=== PATIENT | female | born 1975 | race Caucasian/White ===

== ENCOUNTER 2018-01-28 18:14 | Emergency (ER) | payer OTHER ==
--- NOTE | 2018-01-28 19:17 | EDPHYS ---
Physician Documentation [facility] Name: Krystle Rodgers Age: 42 yrs Sex: Female : 1975 Arrival Date: 01/28/2018 Time: 18:17 Bed 16 Private MD: Fred Doe ED Physician Guru Castaneda HPI: 01/28 19:16 This 42 yrs old Female presents to ER via Ambulatory with complaints of Ear pm1 Pain. 19:16 The patient presents with pain. The complaints affect the left ear. Onset: The pm1 symptoms/episode began/occurred 1 week(s) ago. Modifying factors: The symptoms are alleviated by covering ear with heat pack. Associated signs and symptoms: Pertinent negatives: cough, fever, shortness of breath, sore throat. Severity of symptoms: in the emergency department the symptoms are worse. The patient has not experienced similar symptoms in the past. Patient is a pain management patient for chronic low back pain and has been taking hydrocodone at home for the pain without any relief. Patient took 1/2 of 1 hydrocodone tablet 2 hours prior to arrival. Patient has been swimming almost every day this summer. 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 aj1 Historical: - Allergies: 18:41 Aspirin; aj1 18:41 Latex, Natural Rubber; aj1 18:41 Iodine; aj1 18:41 Ibuprofen; aj1 - Home Meds: 18:42 insulin [Active]; hctz [Active]; zyrtec [Active]; codeine [Active]; muscle relaxers aj1 [Active]; Toujeo SoloStar subcutaneous subcutaneous [Active]; 18:52 Latuda oral oral [Active]; pantoprazole oral oral [Active]; metformin [Active]; aj1 Hydroxyzine Oral [Active]; cholesterol medication [Active]; potassium [Active]; Magnesium Oxide Oral [Active]; Bupropion Oral [Active]; gabapentin oral oral [Active]; - PMHx: 18:41 Anxiety; Depression; Diabetes - IDDM; Glaucoma; Hypertension; aj1 - PSHx: 18:41 Hernia repair; left ankle; aj1 - Immunization history:: Flu vaccine is not up to date. - Social history:: Smoking status: Patient uses tobacco products, smokes one-half pack cigarettes per day. - Ebola Screening: : Patient denies travel to an Ebola-affected area in the 21 days before illness onset. ROS: 19:16 Constitutional: Negative for fever, chills, and weight loss, Eyes: Negative for injury, pm1 pain, redness, and discharge. 19:16 Neck: Negative for injury, pain, and swelling, Cardiovascular: Negative for chest pain, palpitations, and edema, Respiratory: Negative for shortness of breath, cough, wheezing, and pleuritic chest pain, Abdomen/GI: Negative for abdominal pain, nausea, vomiting, diarrhea, and constipation, Back: Negative for injury and pain, MS/Extremity: Negative for injury and deformity, Skin: Negative for injury, rash, and discoloration, Neuro: Negative for headache, weakness, numbness, tingling, and seizure. 19:16 ENT: Positive for ear pain, of the left ear, Negative for drainage from ear(s), sinus congestion, sinus pain, sore throat, dental pain, difficulty swallowing, difficulty handling secretions, hoarseness. Exam: 19:16 Constitutional: This is a well developed, well nourished patient who is awake, alert, pm1 and in no acute distress. Head/Face: Normocephalic, atraumatic. Eyes: Pupils equal round and reactive to light, extra-ocular motions intact. Lids and lashes normal. Conjunctiva and sclera are non-icteric and not injected. Cornea within normal limits. Periorbital areas with no swelling, redness, or edema. 19:16 Neck: Trachea midline, no thyromegaly or masses palpated, and no cervical lymphadenopathy. Supple, full range of motion without nuchal rigidity, or vertebral point tenderness. No Meningismus. Chest/axilla: Normal chest wall appearance and motion. Nontender with no deformity. No lesions are appreciated. Cardiovascular: Regular rate and rhythm with a normal S1 and S2. No gallops, murmurs, or rubs. Normal PMI, no JVD. No pulse deficits. Respiratory: Lungs have equal breath sounds bilaterally, clear to auscultation and percussion. No rales, rhonchi or wheezes noted. No increased work of breathing, no retractions or nasal flaring. Abdomen/GI: Soft, non-tender, with normal bowel sounds. No distension or tympany. No guarding or rebound. No evidence of tenderness throughout. Back: No spinal tenderness. No costovertebral tenderness. Full range of motion. Skin: Warm, dry with normal turgor. Normal color with no rashes, no lesions, and no evidence of cellulitis. MS/ Extremity: Pulses equal, no cyanosis. Neurovascular intact. Full, normal range of motion. 19:16 ENT: External ear(s): are unremarkable, Ear canal(s): swelling, that is moderate, of the left canal, TM's: TM not completely visible on left ear due to left canal swelling, Examination of the other ear shows no obvious abnormality, Nose: is normal, no bleeding, no drainage, no edema, Mouth: is normal, no drooling, no injury, (-) tongue elevation (-) trismus Posterior pharynx: is normal, airway is patent, normal sized tonsils, normal uvula size. 19:16 Neuro: Orientation: is normal, Motor: moves all fours. Vital Signs: 18:42 BP 134 / 84; Pulse 112; Resp 20; Temp 98.3(O); Pulse Ox 99% on R/A; Weight 145.15 kg aj1 (R); Height 5 ft. 3 in. (160.02 cm) (R); Pain 10/10; 18:42 Body Mass Index 56.68 (145.15 kg, 160.02 cm) 1 MDM: 18:54 Patient medically screened. pm1 19:16 Data reviewed: vital signs. Data interpreted: Pulse oximetry: on room air is 99 %. pm1 Interpretation: normal. Counseling: I had a detailed discussion with the patient and/or guardian regarding: the historical points, exam findings, and any diagnostic results supporting the discharge/admit diagnosis, the need for outpatient follow up, to return to the emergency department if symptoms worsen or persist or if there are any questions or concerns that arise at home. Administered Medications: 19:29 Drug: Hydrocodone-Acetaminophen (7.5 mg-325 mg) 1 tabs Route: PO; kr2 19:32 Follow up: Response: Medication administered at discharge. kr2 Disposition: 01/29 07:11 Co-signature as Attending Physician, Guru Castaneda MD. rn Disposition: 01/28/18 19:17 Discharged to Home. Impression: Unspecified otitis externa, left ear. - Condition is Stable. - Discharge Instructions: Ear Drops, Adult, Otitis Externa. - Prescriptions for Cortisporin 3.5- 10,000-1 mg/mL-unit/mL-% Otic solution - instill 4 drop by OTIC route every 6 hours for 10 days; 10 milliliter. Amoxicillin 500 mg Oral Capsule - take 1 capsule by ORAL route every 8 hours for 10 days; 30 tablet. - Medication Reconciliation Form, Thank You Letter, Antibiotic Education, Prescription Opioid Use form. - Follow up: Emergency Department; When: As needed; Reason: Worsening of condition. Follow up: Private Physician; When: 2 - 3 days; Reason: Recheck today's complaints, Continuance of care, Re-evaluation by your physician. - Problem is new. - Symptoms have improved. Signatures: Marguerite Ferguson RN RN aj1 Guru Castaneda MD MD rn Marinas, Patrick, INSTRUCTOR WARPER INSTRUCTOR WARPER pm1 Risa Dimas RN RN kr2 Corrections: (The following items were deleted from the chart) 01/28 19:33 19:17 01/28/2018 19:17 Discharged to Home. Impression: Unspecified otitis externa, left kr2 ear. Condition is Stable. Forms are Medication Reconciliation Form, Thank You Letter, Antibiotic Education, Prescription Opioid Use. Follow up: Emergency Department; When: As needed; Reason: Worsening of condition. Follow up: Private Physician; When: 2 - 3 days; Reason: Recheck today's complaints, Continuance of care, Re-evaluation by your physician. Problem is new. Symptoms have improved. pm1
--- NOTE | 2018-01-28 19:17 | ER ---
Nurse's Notes [facility] Name: Krystle Rodgers Age: 42 yrs Sex: Female : 1975 Arrival Date: 01/28/2018 Time: 18:17 Bed 16 Private MD: Fred Doe Diagnosis: Unspecified otitis externa, left ear Presentation: 01/28 18:38 Presenting complaint: Patient states: "I started getting pain in my ear a week ago and aj1 now its getting so sharp that I cant sleep at night" Reports left ear pain that radiates to the left jaw. States that she has been taking Codeine and Tramadol for her pain but it isn't helping. Reports fever at home of 99.9. Transition of care: patient was not received from another setting of care. Onset of symptoms was January 21, 2018. Risk Assessment: Do you want to hurt yourself or someone else? Patient reports no desire to harm self or others. Initial Sepsis Screen: Does the patient meet any 2 criteria? HR > 90 bpm. Does the patient have a suspected source of infection? No. Patient's initial sepsis screen is negative. Care prior to arrival: None. 18:38 Method Of Arrival: Ambulatory aj1 18:38 Acuity: INNA 4 aj1 Triage Assessment: 18:42 General: Appears in no apparent distress. comfortable, Behavior is calm, cooperative, aj1 appropriate for age. Pain: Complains of pain in left ear Pain radiates to left jaw Pain currently is 10 out of 10 on a pain scale. EENT: Reports ear pain. Neuro: Level of Consciousness is awake, alert, obeys commands. Cardiovascular: Patient's skin is warm and dry. Respiratory: Airway is patent Respiratory effort is even, unlabored, Respiratory pattern is regular, symmetrical. 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 aj1 Historical: - Allergies: 18:41 Aspirin; aj1 18:41 Latex, Natural Rubber; aj1 18:41 Iodine; aj1 18:41 Ibuprofen; aj1 - Home Meds: 18:42 insulin [Active]; hctz [Active]; zyrtec [Active]; codeine [Active]; muscle relaxers aj1 [Active]; Toujeo SoloStar subcutaneous subcutaneous [Active]; 18:52 Latuda oral oral [Active]; pantoprazole oral oral [Active]; metformin [Active]; aj1 Hydroxyzine Oral [Active]; cholesterol medication [Active]; potassium [Active]; Magnesium Oxide Oral [Active]; Bupropion Oral [Active]; gabapentin oral oral [Active]; - PMHx: 18:41 Anxiety; Depression; Diabetes - IDDM; Glaucoma; Hypertension; aj1 - PSHx: 18:41 Hernia repair; left ankle; aj1 - Immunization history:: Flu vaccine is not up to date. - Social history:: Smoking status: Patient uses tobacco products, smokes one-half pack cigarettes per day. - Ebola Screening: : Patient denies travel to an Ebola-affected area in the 21 days before illness onset. Screenin:29 Abuse screen: Denies threats or abuse. Denies injuries from another. Nutritional kr2 screening: No deficits noted. Tuberculosis screening: No symptoms or risk factors identified. Fall Risk None identified. Assessment: 19:15 General: Appears in no apparent distress. uncomfortable, well groomed, Behavior is kr2 calm, cooperative, appropriate for age. Pain: Complains of pain in left ear Pain radiates to left jaw Pain currently is 10 out of 10 on a pain scale. Quality of pain is described as aching, Is continuous, Alleviated by nothing. Neuro: Level of Consciousness is awake, alert, obeys commands, Oriented to person, place, time, situation. Cardiovascular: Capillary refill < 3 seconds in bilateral fingers Patient's skin is warm and dry. Respiratory: Airway is patent Respiratory effort is even, unlabored, Respiratory pattern is regular, symmetrical. GI: Patient currently denies nausea, vomiting. EENT: Nares are clear bilaterally Oral mucosa is moist. EENT: Reports pain in left ear. Derm: Skin is intact, is healthy with good turgor, Skin is pink, warm \\T\\ dry. Musculoskeletal: Circulation, motion, and sensation intact. Vital Signs: 18:42 BP 134 / 84; Pulse 112; Resp 20; Temp 98.3(O); Pulse Ox 99% on R/A; Weight 145.15 kg aj1 (R); Height 5 ft. 3 in. (160.02 cm) (R); Pain 10/10; 18:42 Body Mass Index 56.68 (145.15 kg, 160.02 cm) [facility] ED Course: 18:17 Patient arrived in ED. sb2 18:17 Fred Doe DO is Private Physician. sb2 18:40 Triage completed. aj1 18:42 Arm band placed on Patient placed in an exam room. aj1 18:54 Cordell Bentley NP is PHCP. pm1 18:54 Guru Castaneda MD is Attending Physician. pm1 19:23 Risa Dimas, RN is Primary Nurse. kr2 19:30 Patient has correct armband on for positive identification. Bed in low position. Call kr2 light in reach. Side rails up X 1. Pulse ox on. NIBP on. 19:32 No provider procedures requiring assistance completed. Patient did not have IV access kr2 during this emergency room visit. Administered Medications: 19:29 Drug: Hydrocodone-Acetaminophen (7.5 mg-325 mg) 1 tabs Route: PO; kr2 19:32 Follow up: Response: Medication administered at discharge. kr2 Outcome: 19:17 Discharge ordered by MD. pm1 19:32 Discharged to home ambulatory, with friend. kr2 19:32 Condition: good 19:32 Discharge instructions given to patient, Instructed on discharge instructions, follow up and referral plans. medication usage, Demonstrated understanding of instructions, follow-up care, medications, Prescriptions given X 2. 19:33 Patient left the ED. kr2 Signatures: Marguerite Ferguson RN RN aj1 Cordell Bentley, [facility] [employer] pm1 Risa Dimas, OLYA RN kr2 Leah James sb2
[2018-01-28] MEDS ORDERED: HYDROCODONE/APAP 7.5/325 MG TAB ONE (19:31)
[2018-01-28 19:38] VITALS: BP 134/84; TEMP 98.3; O2SAT 99
== END 2018-01-28 19:33 | disposition home or self-care (01) ==
LOC: ER 18:14
DX: H60.92 Unspecified otitis externa, left ear (principal); F17.210 Nicotine dependence, cigarettes, uncomplicated; Z88.6 Allergy status to analgesic agent; Z91.040 Latex allergy status; Z91.048 Other nonmedicinal substance allergy status; I10 Essential (primary) hypertension; E11.39 Type 2 diabetes mellitus with other diabetic ophthalmic complication; H40.9 Unspecified glaucoma; H42 Glaucoma in diseases classified elsewhere; Z79.4 Long term (current) use of insulin
CPT/HCPCS: 99283

== ENCOUNTER 2018-01-29 00:59 | Emergency (ER) | payer OTHER ==
[2018-01-29] MEDS ORDERED: levoFLOXacin 500 MG TAB ONE (01:38)
--- NOTE | 2018-01-29 01:53 | EDPHYS ---
Physician Documentation [facility] Name: Krystle Rodgers Age: 42 yrs Sex: Female : 1975 Arrival Date: 01/29/2018 Time: 01:00 Bed 20 Private MD: Fred Doe ED Physician Rusty Gonzalez HPI: 01/29 01:54 This 42 yrs old Female presents to ER via Ambulatory with complaints of Ear gs Pain. 01:54 The patient presents with pain, swelling, tenderness. The complaints affect the left gs ear. Onset: The symptoms/episode began/occurred 2 day(s) ago. Modifying factors: the symptoms are aggravated by pulling on ears. Associated signs and symptoms: Pertinent negatives: fever. Severity of symptoms: At their worst the symptoms were severe in the emergency department the symptoms are unchanged. The patient has not experienced similar symptoms in the past. The patient has been recently seen at the [facility] Emergency Department, yesterday. 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 - Irregular menses bp Historical: - Allergies: 01:10 Aspirin; bp 01:10 Ibuprofen; bp 01:10 Iodine; bp 01:10 Latex, Natural Rubber; bp - Home Meds: 01:10 Bupropion Oral [Active]; Latuda Oral [Active]; muscle relaxers [Active]; pantoprazole bp Oral [Active]; POTASSIUM [Active]; Toujeo SoloStar subcutaneous [Active]; Zyrtec [Active]; Magnesium Oxide Oral [Active]; cholesterol medication [Active]; codeine [Active]; gabapentin Oral [Active]; hctz [Active]; Hydroxyzine Oral [Active]; insulin [Active]; metformin [Active]; - PMHx: 01:10 Anxiety; Depression; Diabetes - IDDM; Glaucoma; Hypertension; bp - Immunization history:: Adult Immunizations up to date. - Social history:: Smoking status: unknown. - Ebola Screening: : Patient negative for fever greater than or equal to 101.5 degrees Fahrenheit, and additional compatible Ebola Virus Disease symptoms Patient denies exposure to infectious person Patient denies travel to an Ebola-affected area in the 21 days before illness onset No symptoms or risks identified at this time. ROS: 01:54 All other systems are negative. gs Exam: 01:54 Head/Face: Normocephalic, atraumatic. Eyes: Pupils equal round and reactive to light, gs extra-ocular motions intact. Lids and lashes normal. Conjunctiva and sclera are non-icteric and not injected. Cornea within normal limits. Periorbital areas with no swelling, redness, or edema. Neck: Trachea midline, no thyromegaly or masses palpated, and no cervical lymphadenopathy. Supple, full range of motion without nuchal rigidity, or vertebral point tenderness. No Meningismus. Chest/axilla: Normal chest wall appearance and motion. Nontender with no deformity. No lesions are appreciated. Cardiovascular: Regular rate and rhythm with a normal S1 and S2. No gallops, murmurs, or rubs. Normal PMI, no JVD. No pulse deficits. Respiratory: Lungs have equal breath sounds bilaterally, clear to auscultation and percussion. No rales, rhonchi or wheezes noted. No increased work of breathing, no retractions or nasal flaring. Abdomen/GI: Soft, non-tender, with normal bowel sounds. No distension or tympany. No guarding or rebound. No evidence of tenderness throughout. Back: No spinal tenderness. No costovertebral tenderness. Full range of motion. 01:54 Constitutional: The patient appears alert, awake. 01:54 ENT: External ear(s): pain with movement, that is moderate, of the left ear canal, Ear canal(s): swelling, that is moderate, of the left canal. Vital Signs: 01:10 BP 147 / 102; Pulse 109; Resp 20; Temp 98.4; Pulse Ox 99% ; Weight 136.08 kg; Height 5 bp ft. 3 in. (160.02 cm); 01:10 Body Mass Index 53.14 (136.08 kg, 160.02 cm) bp Procedures: 01:54 Performed placement of earwick left ear canal no conplications. gs MDM: 01:15 Patient medically screened. 01:54 Differential diagnosis: otitis externa, acute otalgia. Data reviewed: vital signs, nurses notes. Response to treatment: the patient's symptoms have mildly improved after treatment, and as a result, I will discharge patient. Administered Medications: 01:35 Not Given (not in stock): Ocuflox Drops 0.3 % 1 drops Ophthalmic once; to md for use 01:47 Drug: LevaQUIN 500 mg Route: PO; ao 02:19 Follow up: Response: No adverse reaction ao 02:19 Not Given (Unable to get medication): CIPRODEX 4 drops Otic in left ear once ao Disposition: 01/29/18 01:52 Discharged to Home. Impression: Acute eczematoid otitis externa, left ear, Otalgia, left ear. - Condition is Stable. - Discharge Instructions: Ear Drops, Adult, Otitis Externa. - Prescriptions for Levaquin 500 mg Oral Tablet - take 1 tablet by ORAL route once daily for 6 days; 6 tablet. Ciprodex 0.3- 0.1 % Otic Drops, Suspension - instill 4 drop by OTIC route every 12 hours for 7 days , for ears ONLY; 1 Container. - Medication Reconciliation Form, Thank You Letter, Antibiotic Education, Prescription Opioid Use form. - Follow up: Kalyn Lepe MD; When: 2 - 3 days; Reason: Re-evaluation by your physician, removal of wick. Signatures: Amos Walker RN RN Rusty Gray MD MD Mart Marcano RN RN bp Corrections: (The following items were deleted from the chart) 01:54 01:52 01/29/2018 01:52 Discharged to Home. Impression: Acute eczematoid otitis externa, gs left ear. Condition is Stable. Forms are Medication Reconciliation Form, Thank You Letter, Antibiotic Education, Prescription Opioid Use. Follow up: Kalyn Lepe; When: 2 - 3 days; Reason: Re-evaluation by your physician, removal of wick. 02:20 01:54 01/29/2018 01:52 Discharged to Home. Impression: Acute eczematoid otitis externa, ao left ear; Otalgia, left ear. Condition is Stable. Discharge Instructions: Ear Drops, Adult. Prescriptions for Levaquin 500 mg Oral Tablet - take 1 tablet by ORAL route once daily for 6 days; 6 tablet, Ciprodex 0.3-0.1 % Otic Drops, Suspension - instill 4 drop by OTIC route every 12 hours for 7 days , for ears ONLY; 1 Container. and Forms are Medication Reconciliation Form, Thank You Letter, Antibiotic Education, Prescription Opioid Use. Follow up: Kalyn Lepe; When: 2 - 3 days; Reason: Re-evaluation by your physician, removal of wick. gs
--- NOTE | 2018-01-29 01:53 | ER ---
Nurse's Notes [facility] Name: Krystle Rodgers Age: 42 yrs Sex: Female : 1975 Arrival Date: 01/29/2018 Time: 01:00 Bed 20 Private MD: Fred Doe Diagnosis: Acute eczematoid otitis externa, left ear;Otalgia, left ear Presentation: 01/29 01:07 Presenting complaint: Patient states: I WAS HERE THREE HOURS AGO AND THE MEDICINE Y'ALL bp GAVE ME AIN'T WORKING. Transition of care: patient was not received from another setting of care. Onset of symptoms is unknown. Risk Assessment: Do you want to hurt yourself or someone else? Patient reports no desire to harm self or others. Initial Sepsis Screen: Does the patient meet any 2 criteria? No. Patient's initial sepsis screen is negative. Does the patient have a suspected source of infection? No. Patient's initial sepsis screen is negative. Care prior to arrival: None. 01:07 Method Of Arrival: Ambulatory bp 01:07 Acuity: INNA 5 bp Triage Assessment: 01:10 General: Appears in no apparent distress. comfortable, obese, Behavior is calm, bp cooperative, appropriate for age. Pain: Complains of pain in left ear. EENT: Reports pain in left ear. 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 bp Historical: - Allergies: 01:10 Aspirin; bp 01:10 Ibuprofen; bp 01:10 Iodine; bp 01:10 Latex, Natural Rubber; bp - Home Meds: 01:10 Bupropion Oral [Active]; Latuda Oral [Active]; muscle relaxers [Active]; pantoprazole bp Oral [Active]; POTASSIUM [Active]; Toujeo SoloStar subcutaneous [Active]; Zyrtec [Active]; Magnesium Oxide Oral [Active]; cholesterol medication [Active]; codeine [Active]; gabapentin Oral [Active]; hctz [Active]; Hydroxyzine Oral [Active]; insulin [Active]; metformin [Active]; - PMHx: 01:10 Anxiety; Depression; Diabetes - IDDM; Glaucoma; Hypertension; bp - Immunization history:: Adult Immunizations up to date. - Social history:: Smoking status: unknown. - Ebola Screening: : Patient negative for fever greater than or equal to 101.5 degrees Fahrenheit, and additional compatible Ebola Virus Disease symptoms Patient denies exposure to infectious person Patient denies travel to an Ebola-affected area in the 21 days before illness onset No symptoms or risks identified at this time. Screenin:11 Abuse screen: Denies threats or abuse. Denies injuries from another. Nutritional bp screening: No deficits noted. Tuberculosis screening: No symptoms or risk factors identified. Fall Risk None identified. Assessment: 01:11 General: SEE TRIAGE NOTE. SEEN \R\3 HOURS AGO, COMPLAINS PAIN MEDICINE NOT WORKING FOR bp LEFT EAR PAIN. Vital Signs: 01:10 BP 147 / 102; Pulse 109; Resp 20; Temp 98.4; Pulse Ox 99% ; Weight 136.08 kg; Height 5 bp ft. 3 in. (160.02 cm); 01:10 Body Mass Index 53.14 (136.08 kg, 160.02 cm) bp ED Course: 01:00 Patient arrived in ED. es 01:00 Fred Doe DO is Private Physician. es 01:08 Triage completed. bp 01:09 Rusty Gonzalez MD is Attending Physician. gs 01:11 Arm band placed on. bp 01:11 Patient has correct armband on for positive identification. Bed in low position. Call bp light in reach. Side rails up X2. 01:12 Amos Walker, OLYA is Primary Nurse. ao 01:51 Kalyn Lepe MD is Referral Physician. gs 02:19 No provider procedures requiring assistance completed. Patient did not have IV access ao during this emergency room visit. Administered Medications: 01:35 Not Given (not in stock): Ocuflox Drops 0.3 % 1 drops Ophthalmic once; to md for use gs 01:47 Drug: LevaQUIN 500 mg Route: PO; ao 02:19 Follow up: Response: No adverse reaction ao 02:19 Not Given (Unable to get medication): CIPRODEX 4 drops Otic in left ear once ao Outcome: 01:52 Discharge ordered by MD. gs 02:19 Discharged to home ambulatory. ao 02:19 Condition: stable 02:19 Discharge instructions given to patient, Instructed on discharge instructions, follow up and referral plans. Demonstrated understanding of instructions, follow-up care, medications, Prescriptions given X 2. 02:20 Patient left the ED. ao Signatures: Larissa Romeo Alex RN RN ao Rusty Gonzalez MD MD gs Peltier, Brian, RN RN bp Corrections: (The following items were deleted from the chart) 02:18 02:18 CIPRODEX 4 drops Otic in left ear ao joanie
[2018-01-29 02:31] VITALS: BP 147/102; TEMP 98.4; O2SAT 99
== END 2018-01-29 02:20 | disposition home or self-care (01) ==
LOC: ER 00:59
DX: H60.542 Acute eczematoid otitis externa, left ear (principal); I10 Essential (primary) hypertension; E11.9 Type 2 diabetes mellitus without complications; F41.9 Anxiety disorder, unspecified; F32.9 Major depressive disorder, single episode, unspecified; Z79.4 Long term (current) use of insulin; Z88.6 Allergy status to analgesic agent; Z91.040 Latex allergy status; Z91.048 Other nonmedicinal substance allergy status
CPT/HCPCS: 99283

== ENCOUNTER 2019-01-30 12:37 | Emergency (ER) | payer OTHER ==
--- OUTSIDE RECORDS SUMMARY | 2019-01-30 13:04 | XMS REPORT ---
:1975 Author Organization [facility] Address [address] [place] [address] Dr. Arizmendi [address] [place] [id number] Care Team Providers Name Role Phone Unavailable Unavailable Unavailable Problems This patient has no known problems. Allergies, Adverse Reactions, Alerts This patient has no known allergies or adverse reactions. Medications This patient has no known medications.
--- OUTSIDE RECORDS SUMMARY | 2019-01-30 13:04 | XMS REPORT | Summary of Care ---
:1975 Author Organization [facility] Address [address] [place] [address] Care Team Providers Name Role Phone Fred Doe Primary Care Provider Nery Nicole MD Faculty Unavailable Reason for Visit Reason Comments Notification Encounter Details Date Type Department Care Team Description 01/17/2019 Telephone [facility] Endocrinology- Reena Young MD Notification [address] Professional Office [address] [phone] [place] [address] [address] [place] [address] Allergies Active Allergy Reactions Severity Noted Date Comments Aspirin Swelling 08/01/2015 Banana Swelling 01/29/2012 Ciprofloxacin Swelling 01/29/2012 Codeine Itching, Swelling 08/01/2015 Ibuprofen Swelling 11/21/2015 Iodine Swelling 01/29/2012 Latex Swelling 08/01/2015 [place] Swelling 01/29/2012 documented as of this encounter (statuses as of 01/17/2019) Medications Medication Sig Dispensed Refills Start End Date Status Date pantoprazole (PROTONIX) Take 40 mg 0 Active 40 mg EC tablet by mouth daily. paroxetine (PAXIL) 40 mg Take 40 mg 0 Active tablet by mouth daily. HYDROCHLOROTHIAZIDE ORAL Take by 0 Active mouth. hydrOXYzine (VISTARIL) Take 25 mg 0 Active 25 mg capsule by mouth 3 (three) times daily as needed for Itching. LATUDA 80 mg tablet 0 Active 7 magnesium oxide 400 mg Take 1 180 tablet 1 Active tablet tablet by 7 mouth 2 (two) times daily. cyclobenzaprine 10 mg Take 10 mg 0 Active tablet by mouth 3 (three) times daily. gabapentin 100 mg Take 100 mg 0 Active capsule by mouth 3 (three) times daily. buPROPion XL 300 mg 24 Take 300 mg 0 Active hr tablet by mouth daily. fluticasone 50 Use in each 0 Active mcg/actuation nasal nostril spray daily. Hydrocodone-Acetaminophe Take by 0 Active n 5-300 mg tablet mouth. Cyanocobalamin-Cobamamid Place under 0 Active e (B12) 5,000-100 mcg the tongue. Lozg Black Cohosh 540 mg Cap Take by 0 Active mouth. Cinnamon Bark (CINNAMON) Take by 0 Active 500 mg Cap mouth. Mvsnw-3-VWH-EPA-Fish Oil Take by 0 Active (FISH OIL) 1,000 mg (120 mouth. mg-180 mg) Cap metFORMIN 500 mg 24 hr Take 2 360 tablet 3 Active tabletIndications: Type tablets by 8 2 diabetes mellitus with mouth 2 proteinuric diabetic (two) times nephropathy daily with meals. lisinopril 40 mg Take 1 90 tablet 1 Active tabletIndications: tablet by 9 Essential hypertension, mouth daily. Stage 1 chronic kidney disease insulin aspart U-100 inject 8 3 Syringe 1 Active (NOVOLOG FLEXPEN U-100 Units under 9 INSULIN) 100 unit/mL the skin 3 injectionIndications: (three) Uncontrolled type 2 times daily diabetes mellitus with before proteinuric diabetic meals. nephropathy atorvastatin 40 mg Take 1 90 tablet 1 Active tabletIndications: tablet by 9 Dyslipidemia mouth at bedtime. Insulin [place], Use as 450 Each 1 Active Disposable, (IQRA PEN directed. 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 diabetes mellitus with proteinuric diabetic nephropathy ondansetron 4 mg tablet Take 4 mg by 0 Active mouth every 8 (eight) hours as needed. SHANELL CHRISTINE U-300 INJECT 35 63 mL 0 Active INSULIN 300 unit/mL (1.5 UNITS UNDER 9 mL) InPnIndications: THE SKIN 2 Uncontrolled type 2 (TWO) TIMES diabetes mellitus with DAILY. proteinuric diabetic nephropathy TRULICITY 1.5 mg/0.5 mL INJECT 1.5 6 mL 1 Active PnIjIndications: Type 2 MG UNDER THE 9 diabetes mellitus SKIN WEEKLY. without complication, with long-term current use of insulin dapagliflozin (FARXIGA) Take 1 30 tablet 4 Active 5 mg tabletIndications: tablet by 9 Uncontrolled type 2 mouth every diabetes mellitus with morning. proteinuric diabetic nephropathy blood sugar diagnostic Use as 300 Strip 1 Active (RELION ULTIMA) directed, 9 stripIndications: TID, Uncontrolled type 2 DX:E11.9 diabetes mellitus with proteinuric diabetic nephropathy blood sugar diagnostic Use as 300 Strip 1 01/18/20 Discontinued (RELION ULTIMA) directed, 9 19 stripIndications: TID, Uncontrolled type 2 DX:E11.9 diabetes mellitus with proteinuric diabetic nephropathy dapagliflozin (FARXIGA) Take 1 30 tablet 4 01/18/20 Discontinued 5 mg tabletIndications: tablet by 9 19 Uncontrolled type 2 mouth every diabetes mellitus with morning. proteinuric diabetic nephropathy documented as of this encounter (statuses as of 01/17/2019) Active Problems Problem Noted Date Morbid obesity with body mass index of 50 or higher 08/28/2018 Knee internal derangement, left 08/14/2018 Overview: Added automatically from request for surgery [id number] Essential hypertension 03/21/2017 Type 2 diabetes mellitus with complication, with long-term current use of 07/2016 insulin Dyslipidemia 03/21/2017 Hypomagnesemia 03/21/2017 Chronic pain of right ankle 08/06/2016 documented as of this encounter (statuses as of 01/17/2019) Social History Tobacco Use Types Packs/Day Years Used Date Passive Smoke Exposure - Never Smoker Cigarettes Smokeless Tobacco: Never Used Comments: Socially Alcohol Use Drinks/Week oz/Week Comments No 0 Standard drinks or equivalent 0.0 Sex Assigned at Date Recorded Not on file Job Start Date Occupation Industry Not on file Not on file Not on file Travel History Travel Start Travel End No recent travel history available. documented as of this encounter Last Filed Vital Signs Not on filedocumented in this encounter Plan of Treatment Date Type Specialty Care Team Description 05/29/2019 Office Visit Endocrinology Diabetes & Reena Young MD Metabolism [address] [place] [address] [phone] 07/03/2019 Ambulatory Care Coordinator Visit Endocrinology Diabetes & Aleena Mendez RD Metabolism [address] [place] [address] [phone] Health Maintenance Due Date Last Done Comments PNEUMOCOCCAL 0-64 YEARS COMBINED 1982 SERIES (1 of - PPSV23) EYE EXAM 1986 DTaP,Tdap,and Td Vaccines (1 - 1995 Tdap) PAP SMEAR 1997 MAMMOGRAM 2016 INFLUENZA VACCINE 02/18/2019 HgA1C 02/21/2019 08/21/2018, 05/08/2018, 02/01/2018, Additional history exists CREATININE (SERUM) 08/22/2019 08/21/2018, 08/21/2018, 03/21/2017, Additional history exists FOOT EXAM 08/22/2019 08/21/2018, 08/21/2018, 05/08/2018, Additional history exists LDL-C 08/22/2019 08/21/2018, 03/21/2017 URINE MICROALBUMIN 08/22/2019 08/21/2018, 03/21/2017 documented as of this encounter Results Not on filedocumented in this encounter Visit Diagnoses Diagnosis 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 & [address] t [id number] [place] [address] [facility] MEDICAID OF xxxxxxxxx 2015-Presdimitry [phone] [address] [place] t 0 [id number] [place] [address] documented as of this encounter
--- OUTSIDE RECORDS SUMMARY | 2019-01-30 13:04 | XMS REPORT | Summary of Care ---
:1975 Author Organization [facility] Address [address] [place] [address] Care Team Providers Name Role Phone Fred Doe Ravi Primary Care Provider Nery Nicole MD Faculty Unavailable Reason for Visit Reason Comments Refill Request Encounter Details Date Type Department Care Team Description 01/13/2019 Refill [facility] Endocrinology- Nery Nicole MD Refill Request [place] [facility] Building [address] [place] [address] [address] [place] [address] Allergies Active Allergy Reactions Severity Noted Date Comments Aspirin Swelling 08/01/2015 Banana Swelling 01/29/2012 Ciprofloxacin Swelling 01/29/2012 Codeine Itching, Swelling 08/01/2015 Ibuprofen Swelling 11/21/2015 Iodine Swelling 01/29/2012 Latex Swelling 08/01/2015 [place] Swelling 01/29/2012 documented as of this encounter (statuses as of 01/15/2019) Medications Medication Sig Dispensed Refills Start Date End Date Status pantoprazole (PROTONIX) 40 Take 40 mg by 0 Active mg EC tablet mouth daily. paroxetine (PAXIL) 40 mg Take 40 mg by 0 Active tablet mouth daily. HYDROCHLOROTHIAZIDE ORAL Take by 0 Active mouth. hydrOXYzine (VISTARIL) 25 Take 25 mg by 0 Active mg capsule mouth 3 (three) times daily as needed for Itching. LATUDA 80 mg tablet 0 07/17/2016 Active magnesium oxide 400 mg Take 1 tablet 180 tablet 1 03/22/2017 Active tablet by mouth 2 (two) times daily. cyclobenzaprine 10 mg Take 10 mg by 0 Active tablet mouth 3 (three) times daily. gabapentin 100 mg capsule Take 100 mg 0 Active by mouth 3 (three) times daily. buPROPion XL 300 mg 24 hr Take 300 mg 0 Active tablet by mouth daily. fluticasone 50 Use in each 0 Active mcg/actuation nasal spray nostril daily. Hydrocodone-Acetaminophen Take by 0 Active 5-300 mg tablet mouth. Cyanocobalamin-Cobamamide Place under 0 Active (B12) 5,000-100 mcg Lozg the tongue. Black Cohosh 540 mg Cap Take by 0 Active mouth. Cinnamon Bark (CINNAMON) Take by 0 Active 500 mg Cap mouth. Rljbz-8-FWA-EPA-Fish Oil Take by 0 Active (FISH OIL) 1,000 mg (120 mouth. mg-180 mg) Cap metFORMIN 500 mg 24 hr Take 2 360 tablet 3 02/01/2018 Active tabletIndications: Type 2 tablets by diabetes mellitus with mouth 2 (two) proteinuric diabetic times daily nephropathy with meals. lisinopril 40 mg Take 1 tablet 90 tablet 1 08/21/2018 Active tabletIndications: by mouth Essential hypertension, daily. Stage 1 chronic kidney disease insulin aspart U-100 inject 8 3 Syringe 1 08/21/2018 Active (NOVOLOG FLEXPEN U-100 Units under INSULIN) 100 unit/mL the skin 3 injectionIndications: (three) times Uncontrolled type 2 daily before diabetes mellitus with meals. proteinuric diabetic nephropathy atorvastatin 40 mg Take 1 tablet 90 tablet 1 08/21/2018 Active tabletIndications: by mouth at Dyslipidemia bedtime. Insulin [place], Use as 450 Each 1 08/21/2018 Active Disposable, (IQRA PEN directed. 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 TOUJEO SOLOSTAR U-300 INJECT 35 63 mL 0 11/20/2018 Active INSULIN 300 unit/mL (1.5 UNITS UNDER mL) InPnIndications: THE SKIN 2 Uncontrolled type 2 (TWO) TIMES diabetes mellitus with DAILY. proteinuric diabetic nephropathy TRULICITY 1.5 mg/0.5 mL INJECT 1.5 MG 6 mL 1 12/20/2018 Active PnIjIndications: Type 2 UNDER THE diabetes mellitus without SKIN WEEKLY. complication, with long-term current use of insulin blood sugar diagnostic Use as 300 Strip 1 01/10/2019 Active (RELION ULTIMA) strip directed, TID, DX:E11.9 documented as of this encounter (statuses as of 01/15/2019) Active Problems Problem Noted Date Morbid obesity with body mass index of 50 or higher 08/28/2018 Knee internal derangement, left 08/14/2018 Overview: Added automatically from request for surgery [id number] Essential hypertension 03/21/2017 Type 2 diabetes mellitus with complication, with long-term current use of 07/2016 insulin Dyslipidemia 03/21/2017 Hypomagnesemia 03/21/2017 Chronic pain of right ankle 08/06/2016 documented as of this encounter (statuses as of 01/15/2019) Social History Tobacco Use Types Packs/Day Years [...] Treatment Date Type Specialty Care Team Description 01/17/2019 Office Visit Endocrinology Diabetes & Reena Young MD Metabolism [address] [place], [place] [address] 07/03/2019 Mental Health Nurse Practitioner Visit Endocrinology Diabetes & Aleena Mendez RD Metabolism [address] [place], [place] 789453 Health Maintenance Due Date Last Done Comments PNEUMOCOCCAL 0-64 YEARS COMBINED 1982 SERIES (1 of 1 - PPSV23) EYE EXAM 1986 DTaP,Tdap,and Td [...] filedocumented in this encounter Visit Diagnoses Diagnosis Essential hypertension Unspecified essential hypertension Stage 1 chronic kidney disease documented in this encounter Insurance Payer Benefit Plan / Subscriber ID Effective Dates Phone Address Type Group MEDICARE MEDICARE PART xxxxxxxxxxx 2014-Valerie [phone] [address] Medicare A & B t 2 [id number] [place] [address] [facility] MEDICAID OF xxxxxxxxx 2015-Valerie [phone] [address] [place] t 0 [id number] [place] [address] documented as of this encounter
--- OUTSIDE RECORDS SUMMARY | 2019-01-30 13:05 | XMS REPORT | Summary of Care ---
:1975 Author Organization [facility] [place] [facility] Address [address] [place] [address] Care Team Providers Name Role Phone DoeFred sterling Ravi Primary Care Provider Nery Nicole MD Faculty Unavailable Reason for Visit Reason Comments Refill Request Encounter Details Date Type Department Care Team Description 01/25/2019 Telephone [facility] Endocrinology- Reena Young MD Refill Request [address] Professional Office [address] [phone] [place] [address] [address] [place] [address] Allergies Active Allergy Reactions Severity Noted Date Comments Aspirin Swelling 08/01/2015 Banana Swelling 01/29/2012 Ciprofloxacin Swelling 01/29/2012 Codeine Itching, Swelling 08/01/2015 Ibuprofen Swelling 11/21/2015 Iodine Swelling 01/29/2012 Latex Swelling 08/01/2015 [place] Swelling 01/29/2012 documented as of this encounter (statuses as of 01/26/2019) Medications Medication Sig Dispensed Refills Start End [...] by 0 Active 500 mg Cap mouth. Bimxq-1-NDT-EPA-Fish Oil Take by 0 Active (FISH OIL) [...] by 9 Dyslipidemia mouth at bedtime. Insulin [place], Use as 450 Each 1 Active Disposable, [...] mouth every 8 (eight) hours as needed. TOUHUNTER SOLOSTAR U-300 INJECT 35 63 mL 0 Active [...] diabetic nephropathy blood sugar diagnostic Use as 200 Strip 1 Active strip directed, 9 TID, DX:E11.9 Lancets (ACCU-CHEK Use as 200 Each 1 Active SOFTCLIX LANCETS) Misc directed, 9 TID, DX:E11.9 blood sugar diagnostic Use as 300 Strip 1 01/27/20 Discontinued (RELION ULTIMA) directed, 9 19 stripIndications: TID, Uncontrolled type 2 DX:E11.9 diabetes mellitus with proteinuric diabetic nephropathy documented as of this encounter (statuses as of 01/26/2019) Active Problems Problem Noted Date Morbid obesity with body mass index of 50 or higher 08/28/2018 Knee internal derangement, left 08/14/2018 Overview: Added automatically from request for surgery [id number] Essential hypertension 03/21/2017 Type 2 diabetes mellitus with complication, with long-term current use of 07/2016 insulin Dyslipidemia 03/21/2017 Hypomagnesemia 03/21/2017 Chronic pain of right ankle 08/06/2016 documented as of this encounter (statuses as of 01/26/2019) Social History Tobacco Use Types Packs/Day Years [...] Diabetes & Reena Young MD Metabolism [address] [place] [address] [phone] 07/03/2019 Sheet Taker Visit Endocrinology Diabetes & Aleena Mendez RD Metabolism [address] [place] [address] [phone] Health Maintenance Due Date Last Done Comments PNEUMOCOCCAL 0-64 YEARS COMBINED 1982 SERIES (1 of - PPSV23) EYE EXAM 1986 DTaP,Tdap,and Td Vaccines ( - 1995 Tdap) PAP SMEAR 1997 MAMMOGRAM 2016 INFLUENZA VACCINE 02/18/2019 HgA1C 02/21/2019 08/21/2018, 05/08/2018, 02/01/2018, Additional history exists CREATININE (SERUM) 08/22/2019 08/21/2018, 08/21/2018, 03/21/2017, Additional history exists LDL-C 08/22/2019 08/21/2018, 03/21/2017 URINE MICROALBUMIN 08/22/2019 08/21/2018, 03/21/2017 FOOT EXAM 01/18/2020 01/17/2019, 01/17/2019, 08/21/2018, Additional history exists documented as of this encounter Results Not on filedocumented in this encounter Insurance Payer Benefit Plan / Subscriber ID Effective Dates Phone Address Type Group MEDICARE MEDICARE PART xxxxxxxxxxx 2014-Presdimitry [phone] [address] Medicare A & B t 2 [id number] [place] [address] [facility] MEDICAID OF xxxxxxxxx 2015-Valerie [phone] [address] Medicaid [place] t 0 [id number] [place] [address] documented as of this encounter
[2019-01-30] MEDS ORDERED: NA CHLORIDE 0.9% 1,000 ML ONE (13:15)
[2019-01-30] MEDS ORDERED: FAMOTIDINE 20 MG/2 ML VIAL IV ONE (13:15)
[2019-01-30] MEDS ORDERED: DICYCLOMINE HCL 10 MG CAP ONE (13:15)
[2019-01-30] MEDS ORDERED: ONDANSETRON 4 MG/2 ML VIAL ONE ×2 (13:15→16:08)
[2019-01-30 13:41] LABS: Absolute Lymphocytes (CBC) 1.9 K/uL (0.7-4.9); Basophils % 0.4 % (0-1.3); Hematocrit 38.2 % (36.0-45.0); Lymphocytes % 16.6 % (15.3-44.8); MPV 9.4 fL (7.6-11.3); RBC Red Blood Cell Count 4.05 M/uL (3.86-4.86)
[2019-01-30 13:55] LABS: ALT/SGPT 44 U/L (12-78); AST/SGOT 27 U/L (15-37); Albumin 3.8 g/dL (3.4-5.0); Alkaline Phosphatase 100 U/L (45-117); BUN Blood Urea Nitrogen 6 mg/dL (7-18); Bicarbonate 28 mmol/L (21-32); Bilirubin Direct 0.1 mg/dL (0-0.2); Bilirubin Total 0.4 mg/dL (0.2-1.0); Glucose Level 159 mg/dL (74-106); Lipase 67 U/L (73-393); Magnesium 1.9 mg/dL (1.8-2.4); Potassium 3.8 mmol/L (3.5-5.1); Protein, Total 7.6 g/dL (6.4-8.2); Sodium Level 136 mmol/L (136-145)
[2019-01-30] MEDS ORDERED: DICYCLOMINE HCL 20 MG/2 ML AMP IM ONE (14:02)
[2019-01-30] MEDS ORDERED: MORPHINE 4 MG/ML SYR ONE ×2 (14:49→17:36)
--- NOTE | 2019-01-30 16:23 | RAD REPORT ---
EXAM DESCRIPTION: CT - Abdomen Pelvis Wo Contrast - 01/30/2019 4:03 pm CLINICAL HISTORY: Abdominal pain. diarrhea;Abd pain COMPARISON: CT ABDOMEN PELVIS WO CONTRAST dated 02/11/2015 TECHNIQUE: CT imaging of the abdomen and pelvis was performed without contrast. Solid organ and vasc ular assessment is limited due to lack of IV contrast. All CT scans are performed using dose optimization technique as appropriate and may include automated exposure control or mA/KV adjustment according to patient size. FINDINGS: The lower lung walters are clear. Mild fatty liver is seen.The spleen, pancreas and adrenal glands are within normal limits. Bilateral renal calculi are seen, small, without hydronephrosis. No bowel obstruction, free air, free fluid or abscess. Thickening of the right colon is noted particu larly hepatic flexure and transverse colon compatible with colitis. Sigmoid diverticulosis coli is pr esent without diverticulitis. The appendix is normal. The osseous structures are within normal limits. IMPRESSION: [id number]-[id number] colitis pattern is present, greatest in the hepatic flexure. Bilateral nephrolithiasis without hydronephrosis. A limited non-contrast examination was performed as detailed.
[2019-01-30] MEDS ORDERED: METRONIDAZOLE 500mg IVPB 500 MG/100 ML BAG IV ONE (16:44)
[2019-01-30] MEDS ORDERED: CIPROFLOXACIN HCL 500 MG TAB ONE (16:53)
--- NOTE | 2019-01-30 16:56 | ER ---
Nurse's Notes [facility] Name: Krystle Rodgers Age: 43 yrs Sex: Female : 1975 Arrival Date: 01/30/2019 Time: 12:39 Bed 24 Private MD: Fred Doe Diagnosis: Infectious gastroenteritis and colitis, unspecified Presentation: 01/30 12:49 Presenting complaint: Patient states: I have been having abd pain, diarrhea for the la1 last few days. Transition of care: patient was not received from another setting of care. Onset of symptoms was January 30, 2019. Risk Assessment: Do you want to hurt yourself or someone else? Patient reports no desire to harm self or others. Initial Sepsis Screen: Does the patient meet any 2 criteria? No. Patient's initial sepsis screen is negative. Does the patient have a suspected source of infection? No. Patient's initial sepsis screen is negative. Care prior to arrival: None. 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 - Social history:: Smoking status: Patient/guardian denies using tobacco. - Ebola Screening: : No symptoms or risks identified at this time. Screenin:10 Abuse screen: Denies threats or abuse. Denies injuries from another. Nutritional ca1 screening: No deficits noted. Tuberculosis screening: No symptoms or risk factors identified. Fall Risk IV access (20 points). Assessment: 13:10 General: Appears in no apparent distress. comfortable, obese, Behavior is calm, ca1 cooperative, appropriate for age. Pain: Complains of pain in abdomen Pain radiates to back Pain currently is 10 out of 10 on a pain scale. Quality of pain is described as crampy, stabbing, Pain began 2-3 days ago. Is intermittent. Neuro: Level of Consciousness is awake, alert, obeys commands, Oriented to person, place, time, situation. Cardiovascular: Heart tones S1 S2 present Capillary refill < 3 seconds Patient's skin is warm and dry. Respiratory: Airway is patent Respiratory effort is even, unlabored, Respiratory pattern is regular, symmetrical, Breath sounds are clear bilaterally. GI: Abdomen is round non-distended, Bowel sounds present X 4 quads. Abd is soft X 4 quads Abdomen is tender to palpation X 4 quads. Reports diarrhea, nausea, vomiting. : No deficits noted. No signs and/or symptoms were reported regarding the genitourinary system. EENT: No deficits noted. No signs and/or symptoms were reported regarding the EENT system. Derm: Skin is intact, is healthy with good turgor, Skin is pink, warm \T\ dry. Musculoskeletal: Circulation, motion, and sensation intact. Capillary refill < 3 seconds, Range of motion: intact in all extremities. 14:00 Reassessment: Patient appears in no apparent distress at this time. Patient and/or ca1 family updated on plan of care and expected duration. Pain level reassessed. Patient is alert, oriented x 3, equal unlabored respirations, skin warm/dry/pink. Oral Contrast completed. Notified business office technician. 15:00 Reassessment: Patient appears in no apparent distress at this time. Patient is alert, ca1 oriented x 3, equal unlabored respirations, skin warm/dry/pink. Pending CT scan. 16:04 Reassessment: Patient appears in no apparent distress at this time. Patient and/or ca1 family updated on plan of care and expected duration. Pain level reassessed. Patient is alert, oriented x 3, equal unlabored respirations, skin warm/dry/pink. 16:18 Reassessment: Pt c/o pain at abdomen, painscale 8/10 and nausea. Notified provider. ca1 16:55 Reassessment: Patient appears in no apparent distress at this time. Patient is alert, ca1 oriented x 3, equal unlabored respirations, skin warm/dry/pink. 17:22 Reassessment: Pt requested pain meds. Still c/o abdominal pain and cramping pain scale ca1 9/10. Pt states, she will be picked up by family and she is not driving home. Showed text message of person picking her up. Notified provider. 17:24 Reassessment: IV antibiotics ongoing. Will discharge once completed. ca1 Vital Signs: 12:50 BP 176 / 88; Pulse 96; Resp 18; Temp 97.3; Pulse Ox 100% on R/A; Weight 136.08 kg; la1 Height 5 ft. 3 in. (160.02 cm); Pain 10/10; 14:00 BP 148 / 74; Pulse 89; Resp 16 S; Temp 98.4(O); Pulse Ox 98% on R/A; ca1 16:04 BP 130 / 62; Pulse 93; Resp 17; Pulse Ox 99% on R/A; ca1 16:55 BP 135 / 72; Pulse 87; Resp 16 S; Pulse Ox 100% on R/A; ca1 12:50 Body Mass Index 53.14 (136.08 kg, 160.02 cm) la1 ED Course: 12:39 Patient arrived in ED. as 12:40 Fred Doe DO is Private Physician. as 12:40 Richard Khan PA is PHCP. cp 12:41 Guru Castaneda MD is Attending Physician. cp 12:50 Triage completed. la1 12:50 Arm band placed on left wrist. la1 13:02 Shonda Jones, RN is Primary Nurse. ca1 13:10 Patient has correct armband on for positive identification. Placed in gown. Bed in low ca1 position. Call light in reach. Side rails up X 1. Pulse ox on. NIBP on. Warm blanket given. 13:30 Missed attempt(s): 22 gauge in left forearm. Bleeding controlled, band aid applied, ca1 catheter tip intact. 13:40 Inserted saline lock: 22 gauge in right antecubital area, using aseptic technique. ca1 Blood collected. 15:43 Patient moved to NV via wheelchair. nj 15:47 CT completed. Patient tolerated procedure well. Patient moved back from NV. nj 15:47 Abdomen In Process Unspecified. EDMS 16:55 Yassine Hughes MD is Referral Physician. cp 17:44 No provider procedures requiring assistance completed. IV discontinued, intact, ca1 bleeding controlled, No redness/swelling at site. Pressure dressing applied. Administered Medications: 13:41 Drug: NS 0.9% 1000 ml Route: IV; Rate: 1 bolus; Site: right antecubital; ca1 13:42 Drug: Zofran 4 mg Route: IVP; Site: right antecubital; ca1 14:46 Follow up: Response: No adverse reaction; Nausea is decreased ca1 13:50 Drug: Pepcid 20 mg Route: IVP; Site: right antecubital; ca1 14:47 Follow up: Response: No adverse reaction ca1 14:00 Drug: Bentyl 20 mg Route: IM; Site: left gluteus; ca1 14:47 Follow up: Response: Pain is unchanged, physician notified ca1 14:52 Drug: morphine 4 mg {Note: RASS - 0.} Route: IVP; Site: right antecubital; ca1 16:10 Follow up: Response: No adverse reaction; Adverse reaction, Physician notified ca1 16:11 Follow up: Response: RASS: Alert and Calm (0) ca1 16:16 Drug: Zofran 2 mg Route: IVP; Site: right antecubital; ca1 16:43 Follow up: Response: No adverse reaction; Nausea is decreased ca1 16:51 Drug: metroNIDAZOLE 500 mg Volume: 100 ml; Route: IVPB; Infused Over: 30 mins; Site: ca1 right antecubital; 17:41 Follow up: Response: No adverse reaction; IV Status: Completed infusion ca1 16:54 Drug: Cipro 500 mg Route: PO; ca1 17:42 Follow up: Response: No adverse reaction ca1 17:42 Drug: morphine 4 mg {Note: RASS - 0.} Route: IVP; Site: right antecubital; ca1 17:43 Follow up: Response: Medication administered at discharge. ca1 17:43 Follow up: Response: RASS: Alert and Calm (0) ca1 Outcome: 16:56 Discharge ordered by MD. cp 17:44 Discharged to home ambulatory, with family. ca1 17:44 Condition: stable 17:44 Discharge instructions given to patient, Instructed on discharge instructions, follow up and referral plans. medication usage, Demonstrated understanding of instructions, follow-up care, medications, Prescriptions given X 4. 17:44 Patient left the ED. ca1 Signatures: Dispatcher [employer] Pamella Vásquez Lee RN RN la1 Richard Khan PA PA cp Jordan, Nathan nj Acob, Cheryl RN RN ca1
--- NOTE | 2019-01-30 16:57 | EDPHYS ---
Physician Documentation [facility] Name: Krystle Rodgers Age: 43 yrs Sex: Female : 1975 Arrival Date: 01/30/2019 Time: 12:39 Bed 24 Private MD: Fred Doe ED Physician Guru Castaneda HPI: 01/30 13:30 This 43 yrs old Female presents to ER via Ambulatory with complaints of cp Abdominal Cramping. 13:30 The patient presents to the emergency department with nausea, abdominal pain, of the cp abdomen diffusely, described as crampy. 13:30 Onset: The symptoms/episode began/occurred 3 day(s) ago. Possible causes: unknown. cp Associated signs and symptoms: Pertinent positives: diarrhea, nausea, Pertinent negatives: constipation, dysuria, fever, GI bleeding. Severity of symptoms: in the emergency department the symptoms are unchanged despite home interventions. 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 - Social history:: Smoking status: Patient/guardian denies using tobacco. - Ebola Screening: : No symptoms or risks identified at this time. ROS: 13:35 Constitutional: Negative for body aches, chills, fever, poor PO intake. cp 13:35 Eyes: Negative for injury, pain, redness, and discharge. cp 13:35 ENT: Negative for drainage from ear(s), ear pain, sore throat, difficulty swallowing, difficulty handling secretions. 13:35 Cardiovascular: Negative for chest pain. 13:35 Respiratory: Negative for cough, shortness of breath, wheezing. 13:35 Abdomen/GI: Positive for abdominal pain, nausea, diarrhea, Negative for vomiting, constipation, black/tarry stool, rectal bleeding. 13:35 : Negative for urinary symptoms. 13:35 Neuro: Negative for altered mental status, dizziness, headache, weakness. 13:35 All other systems are negative. Exam: 13:50 Constitutional: The patient appears in no acute distress, alert, awake, cp non-diaphoretic, non-toxic, well developed, well nourished, obese. 13:50 Head/Face: Normocephalic, atraumatic. cp 13:50 Eyes: Periorbital structures: appear normal, Conjunctiva: normal, no exudate, no injection, Sclera: no appreciated abnormality, Lids and lashes: appear normal, bilaterally. 13:50 ENT: External ear(s): are unremarkable, Nose: is normal, Mouth: Lips: moist, Oral mucosa: moist, Posterior pharynx: is normal, airway is patent, no erythema, no exudate. 13:50 Chest/axilla: Inspection: normal, Palpation: is normal, no crepitus, no tenderness. 13:50 Cardiovascular: Rate: normal, Rhythm: regular, JVD: is not appreciated. 13:50 Respiratory: the patient does not display signs of respiratory distress, Respirations: normal, no use of accessory muscles, no retractions, no splinting, no tachypnea, labored breathing, is not present, Breath sounds: are clear throughout, no decreased breath sounds, no stridor, no wheezing. 13:50 Abdomen/GI: Inspection: obese Bowel sounds: active, all quadrants, Palpation: soft, in all quadrants, moderate abdominal tenderness, in the right mid abdomen, rebound tenderness, is not appreciated, voluntary guarding, is not appreciated, involuntary guarding, is not appreciated. 13:50 Back: pain, is absent, ROM is normal. 13:50 Skin: no rash present. 13:50 Neuro: Orientation: to person, place \T\ time. Mentation: is normal. Vital Signs: 12:50 BP 176 / 88; Pulse 96; Resp 18; Temp 97.3; Pulse Ox 100% on R/A; Weight 136.08 kg; la1 Height 5 ft. 3 in. (160.02 cm); Pain 10/10; 14:00 BP 148 / 74; Pulse 89; Resp 16 S; Temp 98.4(O); Pulse Ox 98% on R/A; ca1 16:04 BP 130 / 62; Pulse 93; Resp 17; Pulse Ox 99% on R/A; ca1 16:55 BP 135 / 72; Pulse 87; Resp 16 S; Pulse Ox 100% on R/A; ca1 12:50 Body Mass Index 53.14 (136.08 kg, 160.02 cm) la1 MDM: 12:52 Patient medically screened. cp 14:00 Differential diagnosis: gastritis, pancreatitis, appendicitis, diverticulitis, viral cp gastroenteritis, gastroenteritis, diverticulitis, colitis. 16:54 Data reviewed: vital signs, nurses notes, lab test result(s), radiologic studies, CT cp scan. 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 Response to treatment: the patient's symptoms have mildly improved after treatment, and as a result, I will discharge patient. 01/30 13:10 Order name: Stool Culture cp 01/30 13:10 Order name: CDIFF cp 01/30 13:10 Order name: Basic Metabolic Panel; Complete Time: 14:38 cp 01/30 14:38 Interpretation: Normal except: GLUC 159; BUN 6. cp 01/30 13:10 Order name: CBC with Diff; Complete Time: 14:38 cp 01/30 14:38 Interpretation: Normal except: WBC 11.6; SOURAV% 77.4; NEUT A 9.0. cp 01/30 13:10 Order name: Creatinine for Radiology; Complete Time: 14:38 cp 01/30 13:10 Order name: Hepatic Function; Complete Time: 14:38 cp 01/30 14:39 Interpretation: Normal except: GLOB 3.8; A/G 1.0. cp 01/30 13:10 Order name: Lipase; Complete Time: 14:38 cp 01/30 14:38 Interpretation: Abnormal: LIP 67. cp 01/30 13:10 Order name: Magnesium; Complete Time: 14:38 cp 01/30 14:39 Interpretation: Within normal limits: MG 1.9. cp 01/30 13:58 Order name: Urine Dipstick--Ancillary (enter results) bd 01/30 13:58 Order name: Urine --Ancillary (enter results) bd 01/30 14:48 Order name: Occult Blood cp 01/30 15:02 Order name: Occult Blood; Complete Time: 15:59 EDMS 01/30 15:59 Interpretation: Abnormal: OB1 \T\nbsp; \T\nbsp; \T\nbsp; \T\nbsp; \T\nbsp;OCCULT BLOOD -- \T\n bsp; cp \T\nbsp; POSITIVE. 01/30 15:29 Order name: Abdomen ; Complete Time: 16:28 EDMS 01/30 13:10 Order name: IV Saline Lock; Complete Time: 13:39 cp 01/30 13:10 Order name: Labs collected and sent; Complete Time: 13:39 cp 01/30 13:10 Order name: Urine Dipstick-Ancillary (obtain specimen); Complete Time: 13:59 cp 01/30 13:10 Order name: Urine Test (obtain specimen); Complete Time: 13:59 cp 01/30 16:35 Order name: PO challenge; Complete Time: 16:51 cp Administered Medications: 13:41 Drug: NS 0.9% 1000 ml Route: IV; Rate: 1 bolus; Site: right antecubital; ca1 13:42 Drug: Zofran 4 mg Route: IVP; Site: right antecubital; ca1 14:46 Follow up: Response: No adverse reaction; Nausea is decreased ca1 13:50 Drug: Pepcid 20 mg Route: IVP; Site: right antecubital; ca1 14:47 Follow up: Response: No adverse reaction ca1 14:00 Drug: Bentyl 20 mg Route: IM; Site: left gluteus; ca1 14:47 Follow up: Response: Pain is unchanged, physician notified ca1 14:52 Drug: morphine 4 mg {Note: RASS - 0.} Route: IVP; Site: right antecubital; ca1 16:10 Follow up: Response: No adverse reaction; Adverse reaction, Physician notified ca1 16:11 Follow up: Response: RASS: Alert and Calm (0) ca1 16:16 Drug: Zofran 2 mg Route: IVP; Site: right antecubital; ca1 16:43 Follow up: Response: No adverse reaction; Nausea is decreased ca1 16:51 Drug: metroNIDAZOLE 500 mg Volume: 100 ml; Route: IVPB; Infused Over: 30 mins; Site: ca1 right antecubital; 17:41 Follow up: Response: No adverse reaction; IV Status: Completed infusion ca1 16:54 Drug: Cipro 500 mg Route: PO; ca1 17:42 Follow up: Response: No adverse reaction ca1 17:42 Drug: morphine 4 mg {Note: RASS - 0.} Route: IVP; Site: right antecubital; ca1 17:43 Follow up: Response: Medication administered at discharge. ca1 17:43 Follow up: Response: RASS: Alert and Calm (0) ca1 Disposition: 18:23 Co-signature as Attending Physician, Guru Castaneda MD. rn Disposition: 01/30/19 16:56 Discharged to Home. Impression: Infectious gastroenteritis and colitis, unspecified. - Condition is Stable. - Discharge Instructions: Food Choices to Help Relieve Diarrhea, Adult, Diarrhea, Adult, Colitis. - Prescriptions for Cipro 500 mg Oral Tablet - take 1 tablet by ORAL route every 12 hours for 10 days; 20 tablet. Tylenol- Codeine #3 300-30 mg Oral Tablet - take 2 tablets by ORAL route every 6 hours As needed; 15 tablet. Zofran 4 mg Oral Tablet - take 1 tablet by ORAL route every 12 hours As needed; 20 tablet. Metronidazole 500 mg Oral Tablet - take 1 tablet by ORAL route every 8 hours; 30 tablet. - Medication Reconciliation Form, Thank You Letter, Antibiotic Education, Prescription Opioid Use form. - Follow up: Yassine Hughes MD; When: 2 - 3 days; Reason: Recheck today's complaints. - Problem is new. - Symptoms have improved. Signatures: Dispatcher [employer] [facility] Guru Castaneda MD MD rn Attema, Lee RN RN la1 Richard Khan PA PA cp Acob, Cheryl, RN RN ca1 Corrections: (The following items were deleted from the chart) 15:28 13:44 Abdomen Pelvis W Con+CT.RAD.BRZ ordered. [facility] 17:44 16:56 01/30/2019 16:56 Discharged to Home. Impression: Infectious gastroenteritis and ca1 colitis, unspecified. Condition is Stable. Forms are Medication Reconciliation Form, Thank You Letter, Antibiotic Education, Prescription Opioid Use. Follow up: Yassine Hughes; When: 2 - 3 days; Reason: Recheck today's complaints. Problem is new. Symptoms have improved. cp
[2019-01-30 18:00] VITALS: TEMP 98.4
[2019-01-30 18:04] VITALS: BP 135/72; O2SAT 100
[2019-01-30 20:04] LABS: Urine Blood NEGATIVE (NEG); Urine Glucose 2+ (NEG); Urine Protein NEGATIVE (NEG); Urine Specific Gravity 1.015 (1.005-1.030)
== END 2019-01-30 17:44 | disposition home or self-care (01) ==
LOC: ER 12:37
DX: A09 Infectious gastroenteritis and colitis, unspecified (principal); I10 Essential (primary) hypertension; Z88.6 Allergy status to analgesic agent; Z91.040 Latex allergy status; Z91.048 Other nonmedicinal substance allergy status
CPT/HCPCS: 96365; 87045; 85025; 80048; 36415; 83735; 82274; 81025; 80076; 87046; 87493; 81003; 83690; 74176; 96375; 96372; 99284; J0500; J7030; J2405 ×2

== ENCOUNTER 2019-05-01 06:24 | Day surgery (SDC) | payer OTHER ==
--- OUTSIDE RECORDS SUMMARY | 2019-05-01 06:31 | XMS REPORT ---
:1975 [facility] Address [address] [place] [address] Dr. Arizmendi [address] [place] [id number] Care Team Providers Name Role Phone Unavailable Unavailable Unavailable Problems This patient has no known problems. Allergies, Adverse Reactions, Alerts This patient has no known allergies or adverse reactions. Medications This patient has no known medications.
[2019-05-01] MEDS ORDERED: NA CHLORIDE 0.9% 1,000 ML ONE (06:40)
[2019-05-01] MEDS ORDERED: PROPOFOL 200 MG/20 ML VIAL IV ONE ×2 (07:40→08:37)
[2019-05-01] MEDS ORDERED: LIDOCAINE 1% MPF 5 ML VIAL ONE (07:40)
--- NOTE | 2019-05-01 08:04 | ENDO RPT ---
[address], [address] EGD PROCEDURE REPORT EXAM DATE: 05/01/2019 PATIENT NAME: Krystle Rodgers MR#: [id number] BIRTHDATE: 1975 ATTENDING: Yassine Hughes Dr STATUS: outpatient DRAMA TEACHER: Carline Cortes RN and Tristan Nichols RN INDICATIONS: The patient is a 43 yr old Female here for an EGD due to bloating, belching, dyspepsia, nausea and vomiting, and chronic unexplained diarrhea PROCEDURE PERFORMED: EGD with biopsy MEDICATIONS: Per Anesthesia. TOPICAL ANESTHETIC: none CONSENT: The patient understands the risks and benefits of the procedure and understands that these risks include, but are not limited to: sedation, allergic reaction, infection, perforation and/or bleeding. Alternative means of evaluation and treatment include, among others: physical exam, x-rays, and/or surgical intervention. The patient elects to proceed with this endoscopic procedure. DESCRIPTION OF PROCEDURE: During intra-op preparation period all mechanical medical equipment was checked for proper function. Hand hygiene and appropriate measures for infection prevention was taken. Procedure, possible complications, and alternatives including but not limited to the possibility of bleeding, perforation, tear, infection, sepsis, need for surgery, need for blood transfusion, and anesthesia related complications were explained to the patient. After the risks, benefits and alternatives of the procedure were thoroughly explained, Informed consent was verified, confirmed and timeout was successfully executed by the treatment team. The patient was placed in the left lateral position. The patient was anesthetized with topical anesthesia. Through the anesthetized oropharyngeal area, the scope was passed without any difficulty. The Pentax EG-[id number] ([id number]) endoscope was introduced through the mouth and advanced to the second portion of the duodenum. Retroflexed views revealed a small hiatal hernia. The gastroscope was then slowly withdrawn and removed. LA Class A esophagitis was found in the lower esophagus. Possible Adams's esophagus was found in the lower esophagus. With jumbo forceps, a biopsy was obtained and sent to pathology. A small hiatal hernia was found Mild gastritis was found in the body and the antrum of the stomach. Multiple biopsies were obtained and sent to pathology. ADVERSE EVENTS: There were no complications. IMPRESSIONS: 1. LA class A esophagitis in the lower esophagus 2. Possible Adams's esophagus (< 1 cm) in the lower esophagus, s/p biopsy 3. Small hiatal hernia 4. Mild gastritis in the body and the antrum of the stomach, s/p biopsies 5. Small bowel biopsies obtained with history of chronic unexplained diarrhea RECOMMENDATIONS: 1. await biopsy results 2. acid suppression therapy REPEAT EXAM: Yassine Hughes Dr eSigned: Yassine Hughes Dr 05/01/2019 8:03 AM cc: Fred Doe CPT CODES: ICD9 CODES: PATIENT NAME: Krystle Rodgers MR#: [id number]
--- NOTE | 2019-05-01 08:39 | ENDO RPT ---
[address], [address] COLONOSCOPY PROCEDURE REPORT EXAM DATE: 05/01/2019 PATIENT NAME: Krystle Rodgers MR #: [id number] BIRTHDATE: 1975 ATTENDING: Yassine Hughes Dr STATUS: outpatient AERONAUTICAL ENGINEERING TEACHER: Tamiko Grace, Carline Cortes RN, and Tristan Nichols RN INDICATIONS: The patient is a 43 yr old Female here for a colonoscopy due to hematochezia, change in bowel habits, constipation / diarrhea, abnornal CT abdomen/pelvis (colitis), and family history of colon polyps - father PROCEDURE PERFORMED: Colonoscopy with snare polypectomy MEDICATIONS: Per Anesthesia. ESTIMATED BLOOD LOSS: None CONSENT: The patient understands the risks and benefits of the procedure and understands that these risks include, but are not limited to: sedation, allergic reaction, infection, perforation and/or bleeding. Alternative means of evaluation and treatment include, among others: physical exam, x-rays, and/or surgical intervention. The patient elects to proceed with this endoscopic procedure. DESCRIPTION OF PROCEDURE: During intra-op preparation period all mechanical medical equipment was checked for proper function. Hand hygiene and appropriate measures for infection prevention was taken. Procedure, possible complications, alternatives including, but not limited to possibility of bleeding, perforation, tear, infection, sepsis, need for surgery, need for blood transfusion, were explained to the patient. After the risks, benefits and alternatives of the procedure were thoroughly explained, Informed consent was verified, confirmed and timeout was successfully executed by the treatment team. The patient was placed in the left lateral position. A digital rectal exam was performed and revealed no abnormalities of the rectum. After appropriate level of anesthesia, the scope was passed. The EG-[id number] ([id number]) and [id number] ([id number]) endoscope was introduced through the anus and advanced to the cecum, which was identified by both the appendix and ileocecal valve. The quality of the prep was poor. The instrument was then slowly withdrawn as the colon was fully examined. Scope withdrawal time was 9 minutes. COLON FINDINGS: A smooth pedunculated polyp measuring 2.2 cm in size was found in the sigmoid colon. A polypectomy was performed using snare cautery. The resection was complete, the polyp tissue was completely retrieved and sent to histology. The wound at the site was closed by placing hemoclips. One (1) placement was made. There was no blood loss from maneuver. One (1) placement was made. There was no blood loss from maneuver. Mild diverticulosis was noted in the sigmoid colon. No bleeding was noted from the diverticulosis. Small internal hemorrhoids were found. Retroflexed views revealed small hemorrhoids. The scope was then completely withdrawn from the patient and the procedure terminated. ADVERSE EVENTS: There were no complications. IMPRESSIONS: 1. 2.2 cm pedunculated polyp in the sigmoid colon; polypectomy was performed using snare cautery; the wound at the site was closed by placing hemoclip X1 2. Mild diverticulosis in the sigmoid colon 3. Small internal hemorrhoids 4. Intubation to cecum RECOMMENDATIONS: 1. await biopsy results 2. avoid NSAIDS for 2 weeks RECALL: Return in 4 month(s) for Colonoscopy. Yassine Hughes Dr eSigned: Yassine Hughes Dr 05/01/2019 8:39 AM cc: Fred Doe CPT CODES: ICD9 CODES: 211.3 Benign neoplasm of colon PATIENT NAME: Krystle Rodgers MR#: [id number]
[2019-05-01 08:55] VITALS: TEMP 97.3
[2019-05-01 09:23] VITALS: BP 118/54; O2SAT 98
== END 2019-05-01 09:47 | disposition home or self-care (01) ==
LOC: OR 06:24
PROVIDERS: ATTEND Internal Medicine Gastroenterology
PROC: 0DB88ZX Excision of Small Intestine, Via Natural or Artificial Opening Endoscopic, Diagnostic (ICD-10-PCS; 2019-05-01)
PROC: 0DB68ZX Excision of Stomach, Via Natural or Artificial Opening Endoscopic, Diagnostic (ICD-10-PCS; 2019-05-01)
PROC: 0DBN8ZX Excision of Sigmoid Colon, Via Natural or Artificial Opening Endoscopic, Diagnostic (ICD-10-PCS; principal; 2019-05-01 07:30)
PROC: 0DB38ZX Excision of Lower Esophagus, Via Natural or Artificial Opening Endoscopic, Diagnostic (ICD-10-PCS; 2019-05-01 07:30)
DX: K63.5 Polyp of colon (principal); K29.50 Unspecified chronic gastritis without bleeding; K57.30 Diverticulosis of large intestine without perforation or abscess without bleeding; K20.8 Other esophagitis; K44.9 Diaphragmatic hernia without obstruction or gangrene; K64.8 Other hemorrhoids; E11.9 Type 2 diabetes mellitus without complications; I10 Essential (primary) hypertension; E66.01 Morbid (severe) obesity due to excess calories; Z68.43 Body mass index [BMI] 50.0-59.9, adult; J45.909 Unspecified asthma, uncomplicated; I25.2 Old myocardial infarction; F32.9 Major depressive disorder, single episode, unspecified; Z88.8 Allergy status to other drugs, medicaments and biological substances; Z91.040 Latex allergy status; Z91.041 Radiographic dye allergy status; Z87.891 Personal history of nicotine dependence; Z83.71 Family history of colonic polyps; Z80.3 Family history of malignant neoplasm of breast
CPT/HCPCS: 88312; 88313; 81025; 82947; 88305; 45385; 43239; J2704 ×2; J7030